=== PATIENT | female | born 1975 | race Caucasian/White ===

== ENCOUNTER → 2019-03-31 10:30 | Oncology outpatient (ONC) | payer OTHER, SELFPAY ==
[2018-12-24 11:38] VITALS: BP 113/75; PULSE 57; RESP 18; TEMP 36.5; O2SAT 97
--- NOTE | 2018-12-24 11:38 | PC.NURSE ---
[facility] info sheet given to pt on Lupron.
[2018-12-31 10:39] VITALS: BP 107/53; PULSE 76; RESP 16; TEMP 36.6; O2SAT 97
[2018-12-31] MEDS: LEUPROLIDE DEPOT 11.25 MG SYR IM (10:52)
--- NOTE | 2019-03-23 10:11 | ONC.SCHED ---
patient arrived 12/24/18 for her first injection however the medication was not available so she came back 12/31/18 for first injection. Scheduled for 2nd injection Mar 31, 2019
[2019-03-31] MEDS: LEUPROLIDE DEPOT 11.25 MG SYR IM (09:59)
[2019-03-31 10:16] VITALS: BP 113/57; PULSE 59; RESP 18; TEMP 36.4; O2SAT 100
== END ==
DX: D25.9 Leiomyoma of uterus, unspecified (principal)
CPT/HCPCS: 96372; J1950

== ENCOUNTER → 2019-04-13 15:58 | Outpatient (CLI) | payer OTHER, SELFPAY ==
--- NOTE | 2019-04-13 16:04 | DI.MRI.S_ITS ---
PROCEDURE: MR LUMBAR SPINE WO CON INDICATIONS: LUMBAGO WITH SCIATICA RIGHT SIDE TECHNIQUE: Noncontrast sagittal T1 spin echo and T2 fast echo, sagittal STIR, axial T1 and T2 fast spin echo through the lumbar spine. In cases with scoliosis, additional coronal T2 fast spin echo may be performed. COMPARISON: None. FINDINGS: Image quality: Excellent. Alignment and Curvature: Straightening of the normal lumbar lordosis. Grade 1 retrolisthesis of L4 on L5 and L5 on S1 Bone Marrow: Marrow is of normal overall signal. No acute vertebral body compression fractures. Spinal Cord: Conus medullaris terminates at the L1 level. Visualized cord demonstrates normal signal and size. Paraspinous Soft Tissues: No paravertebral masses. L1-L2: Normal appearance. L2-L3: Normal appearance. L3-L4: Mild central canal narrowing. Partial effacement of both lateral recesses with minimally asymmetric appearance, right slightly greater than left. Moderate bilateral foraminal stenoses. L4-L5: Dorsal epidural lipomatosis. Mild-moderate central canal narrowing. Partial effacement of both lateral recesses with bilaterally symmetric appearance. Moderate to severe right foraminal stenosis with nerve root compression. Mild left foraminal stenosis with slight nerve root compression L5-S1: No high-grade central canal narrowing. Severe right foraminal stenosis with nerve root compression. No foraminal narrowing IMPRESSION: Lower lumbar spondylosis and facet arthropathy as above Mild-moderate L4-L5 canal narrowing. Moderate to severe right L4-L5 foraminal stenosis Severe right L5-S1 foraminal stenosis Moderate bilateral L4 foraminal stenoses Dictated by: Gee Merida M.D. on 04/13/2019 at 17:39 Approved by: Gee Merida M.D. on 04/13/2019 at 17:43
== END ==
PROVIDERS: Visit Provider Family Medicine Geriatric Medicine
DX: M54.41 Lumbago with sciatica, right side (principal); M47.816 Spondylosis without myelopathy or radiculopathy, lumbar region; M48.061 Spinal stenosis, lumbar region without neurogenic claudication; M48.07 Spinal stenosis, lumbosacral region
CPT/HCPCS: 72148

== ENCOUNTER 2022-09-10 13:18 | Emergency (ER) | payer SELFPAY ==
[2022-09-10] VITALS (11 sets, daily range): BP systolic 114–137; BP diastolic 85–102; PULSE 51–85; RESP 16–18; TEMP 36.9; O2SAT 95–100; BMI 20.9
--- NOTE | 2022-09-10 13:43 | DI.US.S_ITS ---
PROCEDURE: US ABDOMEN LIMITED INDICATIONS: RIGHT UPPER QUADRANT AND EPIGASTRIC TECHNIQUE: Real-time scanning was performed of the abdominal and retroperitoneal organs, with image documentation. COMPARISON: None. FINDINGS: Liver: Liver is normal in size and homogeneous in echotexture. Gallbladder: Contracted. Multiple gallbladder polyps present, largest measuring 4 mm. Biliary ducts: Intrahepatic bile ducts are non-dilated. Extrahepatic bile duct caliber measures 4 mm. Normal is 6-7 mm or less in diameter, or 10 mm or less post-cholecystectomy. Pancreas: Visualized portions of the pancreas are sonographically normal. Right kidney: Normal size and echogenicity. No hydronephrosis. Miscellaneous: No free abdominal fluid. IMPRESSION: The gallbladder is contracted, without evidence of acute pathology. Multiple gallbladder polyps, measuring no greater than 4 mm. These are benign and require no further follow-up, per ACR consensus guidelines. Dictated by: Jesus Tapia M.D. on 09/10/2022 at 14:28 Approved by: Jesus Tapia M.D. on 09/10/2022 at 14:29
--- NOTE | 2022-09-10 13:54 | DI.RAD.S_ITS ---
PROCEDURE: XR CHEST 2V INDICATIONS: chest pain TECHNIQUE: 2 views of the chest were acquired. COMPARISON: None. FINDINGS: Surgical changes and devices: None. Lungs and pleura: Lungs are clear. No pleural effusions or pneumothorax. Mediastinum: Mediastinal contours are normal. Heart size is normal. Bones and chest wall: No suspicious bony abnormalities. Soft tissues appear unremarkable. IMPRESSION: No acute cardiopulmonary process. Dictated by: Jesus Tapia M.D. on 09/10/2022 at 14:35 Approved by: Jesus Tapia M.D. on 09/10/2022 at 14:35
--- NOTE | 2022-09-10 13:54 | PC.NURSE ---
As patient getting ready to go to US she reports intermittent substernal chest pain with latest episode yesterday and describes as a pressure that hurts more with breathing. Provider made aware.
[2022-09-10 14:02] LABS: Add Manual Diff / Slide Review NO; Basophils Absolute Auto 100 /uL (0-100); Basophils Percent Auto 0.9 % (0-2); Eosinophils Absolute Auto 100 /uL (0-450); Eosinophils Percent Auto 1.3 % (2-4); Hematocrit 40.4 % (36-46); Hemoglobin 13.7 g/dL (12.0-16.0); Lymphocytes Absolute Auto 3500 /uL (1100-4500); Lymphocytes Percent Auto 39.5 % (25-40); Mean Corpuscular HGB Conc 33.9 % (30-36); Mean Corpuscular Hemoglobin 30.5 PG (26-34); Mean Corpuscular Volume 89.9 fL (80-100); Monocytes Absolute Auto 500 /uL (0-900); Monocytes Percent Auto 5.3 % (3-14); Neutrophils Absolute Auto 4700 /uL (1500-7000); Platelet Count 279 X10^3/uL (150-400); Red Blood Cell Count 4.49 X10^6/uL (4.0-5.2); Red Cell Distribution Width 13.5 % (11.6-14.8); White Blood Cell Count 8.8 X10^3/uL (4.5-11.0)
[2022-09-10 14:15] LABS: Alanine Aminotransferase 15 IU/L (<35); Albumin 4.6 g/dL (3.5-5.0); Albumin Globulin Ratio 1.4 (1.0-2.8); Alkaline Phosphatase 59 U/L (38-126); Aspartate Aminotransferase 21 IU/L (14-36); BUN Creatinine Ratio 20.6 (6-22); Bilirubin Total 0.4 mg/dL (0.2-1.3); Blood Urea Nitrogen 14 mg/dL (7-17); Calcium 8.9 mg/dL (8.4-10.2); Carbon Dioxide 24 mmol/L (22-32); Chloride 106 mmol/L (98-107); Estimated Glomerular Filt Rate > 60 mL/min (>60); Globulin 3.2 g/dL (1.7-4.1); Glucose 124 mg/dL (70-100); HEMOLYSIS < 15 (0-50); Lipase 94 U/L (23-300); Potassium 3.9 mmol/L (3.4-5.1); Sodium 138 mmol/L (137-145); Total Protein 7.8 g/dL (6.3-8.2)
[2022-09-10 14:19] LABS: Bacteria Urine Few (2-10); Hyaline Casts Urine 0-1/LPF; RBC Urine 1-5/HPF (0-5/HPF); Squamous Epithelial Cell Urine 1-5 /HPF (0-5/HPF); WBC Urine 1-5/HPF (0-5/HPF)
[2022-09-10 14:20] LABS: Culture Indicated Urine Cult Not Indicated
[2022-09-10] MEDS: ONDANSETRON 4 MG/2 ML INJ IV (14:22)
[2022-09-10] MEDS: KETOROLAC 30 MG/ML VIAL 15 MG IV (14:22)
[2022-09-10 14:26] LABS: Troponin I < 0.012 ng/mL (0.01-0.034)
--- NOTE | 2022-09-10 14:34 | DI.CT.S_ITS ---
PROCEDURE: CT ABDOMEN PELVIS W CON INDICATIONS: RUQ, epigastric pain TECHNIQUE: After the administration of intravenous contrast, axial sections acquired from the lung bases to the pubic symphysis. Coronal and sagittal reformats were performed. For radiation dose reduction, the following was used: automated exposure control, adjustment of mA and/or kV according to patient size. COMPARISON: None. FINDINGS: Image quality: Excellent. Lung bases: Unremarkable. Heart: No significant findings. ABDOMEN: Liver: Unremarkable. Gallbladder: Cristel Unremarkable. Biliary ducts: Unremarkable. Pancreas: Unremarkable. Spleen: Unremarkable. Adrenal Glands: Unremarkable. Kidneys and Ureters: Unremarkable. Stomach and Bowel: Stomach, small bowel loops, and colon are unremarkable. Peritoneum: No abnormal intraperitoneal fluid. No free air. Ventral Wall: No hernias. Abdominal Nodes: No retroperitoneal or mesenteric adenopathy by size criteria. Vessels: Aorta and inferior vena cava are normal in size. PELVIS: Pelvic Organs: There is what is most likely a large exophytic subserosal fibroid off the posterior wall of the uterus which measures approximately 5.5 x 6.9 x 7.6 cm. It may result in bulk related symptomatology. Bladder: Unremarkable. Pelvic Nodes: No enlarged lymph nodes. Miscellaneous: No hernias are seen. Bones: Lumbar degenerative change. No lytic or blastic bony lesions. No compression fractures. IMPRESSION: 1. No findings which explain the patient's right upper quadrant pain. 2. Probable large exophytic subserosal fibroid. Comment: Recommend further evaluation of the probable fibroid with nonemergent pelvic ultrasound. Dictated by: Joe Jorge M.D. on 09/10/2022 at 15:01 Approved by: Joe Jorge M.D. on 09/10/2022 at 15:11
--- NOTE | 2022-09-10 14:50 | ED_ITS ---
HPI - Abdominal Pain <Kaden De Jesus PA-C - Last Filed: 09/10/22 17:14> General Chief Complaint: Abdominal Pain Stated Complaint: abd pain/pressure/sharp pain T-21/swelling Time Seen by Provider: 09/10/22 13:37 Source: patient Mode of arrival: Ambulatory History of Present Illness HPI narrative: 47-year-old female with past medical history uterine fibroid presents to the ED with 1 month of intermittent right upper quadrant and epigastric pain. Patient endorses nausea but no vomiting. Patient endorses 6 episodes of diarrhea this morning. Denies hematochezia, melena. Patient states that she had 2-3 episodes of chest pain yesterday that felt like substernal chest tightness. Patient d enies shortness of breath, fever, chills, dysuria, urinary urgency, urinary frequency, lightheadedness, dizziness, syncope. Patient states that she is had a poor appetite for the last month, that eating aggravates her abdominal pain. Patient endorses occasional alcohol use. Related Data Home Medications Medication Instructions Recorded Confirmed No Known Home Medications 12/18/18 12/18/18 Allergies Allergy/AdvReac Type Severity Reaction Status Date / Time No Known Drug Allergies Allergy Verified 09/10/22 13:24 Review of Systems <Kaden De Jesus PA-C - Last Filed: 09/10/22 17:14> Review of Systems ROS Unobtainable: All systems reviewed & are unremarkable except as noted in HPI and below Constitutional Constitutional: Denies chills, Denies fatigue, Denies fever(s), Denies frequent falls, Denies lethargy, Reports poor appetite and Denies weakness Eyes Eyes: Denies change in vision, Denies eye discharge, Denies irritation and Denies loss of vision ENT Ears, Nose, Mouth, and Throat: Denies change in voice, Denies dizziness, Denies neck pain, Denies sore throat and Denies throat swelling Cardiovascular Cardiovascular: Denies chest pain, Denies irregular heart rhythm, Denies light headedness, Denies palpitations, Denies dyspnea, Denies dyspnea on exertion and Denies orthopnea Respiratory Respiratory: Denies cough, Denies dyspnea, Denies dyspnea on exertion and Denies wheezing Gastrointestinal Gastrointestinal: Reports abdominal pain, Denies change in bowel habits, Reports diarrhea, Reports nausea and Denies vomiting Genitourinary Genitourinary: Denies hematuria, Denies flank pain, Denies urinary incontinence and Denies urinary urgency Musculoskeletal Musculoskeletal: Denies back pain, Denies muscle weakness, Denies neck pain, Denies numbness and Denies tingling Integumentary/Breasts Skin/Breast: Denies pruritus, Denies erythema, Denies rash and Denies wounds Neurologic Neurologic: Denies behavioral changes, Denies confusion, Denies dizziness, Denies frequent falls, Denies loss of vision, Denies numbness, Denies tingling and Denies weakness Psychiatric Psychiatric: Denies anxiety, Denies behavioral changes, Denies confusion, Denies depression, Denies homicidal ideation and Denies suicidal ideation Endocrine Endocrine: Denies fatigue, Denies flushing and Denies palpitations Hematologic/Lymphatic Hematologic/Lymphatic: Denies easy bruising Allergic/Immunologic Allergic/Immunologic: Denies urticaria, Denies throat swelling and Denies wheezing Patient History <Kaden De Jesus PA-C - Last Filed: 09/10/22 17:14> Medical History Pelvic pain Uterine fibroid Social History marital status: unmarried,single pets and animals: Yes (Turtles) occupational status: employed 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) seatbelt use: always water heater temp set < 120 deg: Yes working smoke detector in home: Yes fire extinguisher in home: Yes carbon monox detector in home: Yes do you feel safe at home: Yes Smoking Status: Current some day smoker alcohol intake: current substance use type: marijuana during the past year weight has: increased > 10 lbs well-balanced diet: daily or most days daily servings fruits/ve-4 caffeine: Yes (1-3 drinks per week) eating out: 4 or more times/week Smoking Status: Current some day smoker tobacco type: cigarettes and vaping Substance Use Type: does not use Exam <Kaden De Jesus PA-C - Last Filed: 09/10/22 17:14> Narrative Exam Narrative: Const General:?cooperative, healthy appearing and comfortable HENNY Head:?normal to inspection Ears:?hearing grossly normal bilaterally Nose:?external nose normal Face and sinus:?normal facial exam and sinuses nontender Mouth:?oral mucosae normal Throat:?posterior oropharynx normal Eyes General:?appearance normal, both eyes and all related structures Neck Neck:?normal visual inspection and no lymphadenopathy noted Resp Effort & Inspection:?normal respiratory effort Auscultation:?clear to auscultation bilaterally Cardio Rate:?regular rate Rhythm:?regular rhythm GI Abdomen is soft, nondistended. Abdomen is tender to palpation in the right upper quadrant and epigastric regions. There is no CVA tenderness. Neuro General:?patient alert, patient awake and patient oriented x3 Initial Vital Signs Initial Vital Signs: Vital Signs Temperature 98.5 F 09/10/22 13:24 Pulse Rate 85 09/10/22 13:24 Respiratory Rate 16 09/10/22 13:24 Blood Pressure 137/102 H 09/10/22 13:24 Pulse Oximetry 98 09/10/22 13:24 Oxygen Delivery Method Room Air 09/10/22 13:24 <Uriel Mcghee DO - Last Filed: 09/10/22 17:42> Initial Vital Signs Initial Vital Signs: Vital Signs Temperature 98.5 F 09/10/22 13:24 Pulse Rate 85 09/10/22 13:24 Respiratory Rate 16 09/10/22 13:24 Blood Pressure 137/102 H 09/10/22 13:24 Pulse Oximetry 98 09/10/22 13:24 Oxygen Delivery Method Room Air 09/10/22 13:24 Course <Kaden De Jesus PA-C - Last Filed: 09/10/22 17:14> Orders Ordered: ED Orders 09/10/22 13:33 Urine Microscopic Stat 09/10/22 13:35 EKG-12 Lead Stat 09/10/22 13:43 US abdomen limited Stat 09/10/22 13:51 Complete Blood Count AUTO DIFF Stat Comprehensive Metabolic Panel Stat Lipase Stat Troponin I Stat 09/10/22 13:54 CXR [XR chest 2V] Stat 09/10/22 14:34 CT abdomen pelvis w con Stat 09/10/22 16:00 Trop I [Troponin I] Stat Discontinued Medications Ketorolac Tromethamine (Ketorolac 30 Mg/Ml Vial) 15 mg IV NOW ONE Stop: 09/10/22 13:44 Last Admin: 09/10/22 14:22 Dose: 15 mg Documented By: AT Ondansetron HCl (Ondansetron 4 Mg Odt) 4 mg PO NOW PRN PRN Reason: Nausea And Vomiting Ondansetron HCl (Ondansetron 4 Mg/2 Ml Inj) 4 mg IV NOW PRN PRN Reason: Nausea And Vomiting Ondansetron HCl (Ondansetron 4 Mg/2 Ml Inj) 4 mg IV NOW ONE Stop: 09/10/22 13:44 Last Admin: 09/10/22 14:22 Dose: 4 mg Documented By: AT Vital Signs Vital signs: Vital Signs - 8 hr 09/10/22 13:24 09/10/22 14:25 09/10/22 14:26 Temperature 98.5 F Pulse Rate 85 56 L Respiratory Rate 16 Blood Pressure 137/102 H Pulse Oximetry 98 100 95 Oxygen Delivery Method Room Air Room Air 09/10/22 14:26 09/10/22 14:30 09/10/22 14:31 Temperature Pulse Rate 65 Respiratory Rate Blood Pressure 135/85 127/87 Pulse Oximetry 98 Oxygen Delivery Method Room Air 09/10/22 14:31 09/10/22 15:00 09/10/22 15:30 Temperature Pulse Rate 66 60 67 Respiratory Rate 18 Blood Pressure Pulse Oximetry 98 99 99 Oxygen Delivery Method Room Air 09/10/22 16:00 09/10/22 16:30 09/10/22 16:45 Temperature Pulse Rate 66 51 L 57 L Respiratory Rate 18 Blood Pressure Pulse Oximetry 99 99 99 Oxygen Delivery Method Room Air 09/10/22 16:46 Temperature Pulse Rate Respiratory Rate Blood Pressure 114/85 Pulse Oximetry Oxygen Delivery Method <Uriel Mcghee DO - Last Filed: 09/10/22 17:42> Orders Ordered: ED Orders 09/10/22 13:33 Urine Microscopic Stat 09/10/22 13:35 EKG-12 Lead Stat 09/10/22 13:43 US abdomen limited Stat 09/10/22 13:51 Complete Blood Count AUTO DIFF Stat Comprehensive Metabolic Panel Stat Lipase Stat Troponin I Stat 09/10/22 13:54 CXR [XR chest 2V] Stat 09/10/22 14:34 CT abdomen pelvis w con Stat 09/10/22 16:00 Trop I [Troponin I] Stat Discontinued Medications Ketorolac Tromethamine (Ketorolac 30 Mg/Ml Vial) 15 mg IV NOW ONE Stop: 09/10/22 13:44 Last Admin: 09/10/22 14:22 Dose: 15 mg Documented By: AT Ondansetron HCl (Ondansetron 4 Mg Odt) 4 mg PO NOW PRN PRN Reason: Nausea And Vomiting Ondansetron HCl (Ondansetron 4 Mg/2 Ml Inj) 4 mg IV NOW PRN PRN Reason: Nausea And Vomiting Ondansetron HCl (Ondansetron 4 Mg/2 Ml Inj) 4 mg IV NOW ONE Stop: 09/10/22 13:44 Last Admin: 09/10/22 14:22 Dose: 4 mg Documented By: AT Vital Signs Vital signs: Vital Signs - 8 hr 09/10/22 13:24 09/10/22 14:25 09/10/22 14:26 Temperature 98.5 F Pulse Rate 85 56 L Respiratory Rate 16 Blood Pressure 137/102 H Pulse Oximetry 98 100 95 Oxygen Delivery Method Room Air Room Air 09/10/22 14:26 09/10/22 14:30 09/10/22 14:31 Temperature Pulse Rate 65 Respiratory Rate Blood Pressure 135/85 127/87 Pulse Oximetry 98 Oxygen Delivery Method Room Air 09/10/22 14:31 09/10/22 15:00 09/10/22 15:30 Temperature Pulse Rate 66 60 67 Respiratory Rate 18 Blood Pressure Pulse Oximetry 98 99 99 Oxygen Delivery Method Room Air 09/10/22 16:00 09/10/22 16:30 09/10/22 16:45 Temperature Pulse Rate 66 51 L 57 L Respiratory Rate 18 Blood Pressure Pulse Oximetry 99 99 99 Oxygen Delivery Method Room Air 09/10/22 16:46 Temperature Pulse Rate Respiratory Rate Blood Pressure 114/85 Pulse Oximetry Oxygen Delivery Method MDM - Abdominal Pain <Kaden De Jesus PA-C - Last Filed: 09/10/22 17:14> Lab Data 09/10/22 13:51 09/10/22 13:51 Labs: Lab Results 09/10/22 09/10/22 09/10/22 Range/Units 13:33 13:51 13:51 WBC 8.8 (4.5-11.0) X10^3/uL RBC 4.49 (4.0-5.2) X10^6/uL Hgb 13.7 (12.0-16.0) g/dL Hct 40.4 (36-46) % MCV 89.9 (80-100) fL MCH 30.5 (26-34) PG MCHC 33.9 (30-36) % RDW 13.5 (11.6-14.8) % Plt Count 279 (150-400) X10^3/uL Neut % (Auto) 53.0 (50-75) % Lymph % (Auto) 39.5 (25-40) % [place] % (Auto) 5.3 (3-14) % Eos % (Auto) 1.3 L (2-4) % Baso % (Auto) 0.9 (0-2) % Neut # (Auto) 4700 (0637-9913) /uL Lymph # (Auto) 3500 (6754-9940) /uL [place] # (Auto) 500 (0-900) /uL Eos # (Auto) 100 (0-450) /uL Baso # (Auto) 100 (0-100) /uL Sodium 138 (137-145) mmol/L Potassium 3.9 (3.4-5.1) mmol/L Chloride 106 (98-107) mmol/L Carbon Dioxide 24 (22-32) mmol/L BUN 14 (7-17) mg/dL Creatinine 0.68 (0.52-1.04) mg/dL Estimated GFR > 60 (>60) mL/min BUN/Creatinine Ratio 20.6 (6-22) Glucose 124 H (70-100) mg/dL Calcium 8.9 (8.4-10.2) mg/dL Total Bilirubin 0.4 (0.2-1.3) mg/dL AST 21 (14-36) IU/L ALT 15 (<35) IU/L Alkaline Phosphatase 59 (38-126) U/L Troponin I (0.01-0.034) ng/mL Total Protein 7.8 (6.3-8.2) g/dL Albumin 4.6 (3.5-5.0) g/dL Globulin 3.2 (1.7-4.1) g/dL Albumin/Globulin Ratio 1.4 (1.0-2.8) Lipase 94 (23-300) U/L Urine RBC 1-5/hpf (0-5/HPF) Urine WBC 1-5/hpf (0-5/HPF) Ur Squamous Epith Cells 1-5 /hpf (0-5/HPF) Urine Bacteria Few (2-10) H (None) Hyaline Casts 0-1/lpf (None) Ur Culture Indicated? Cult not indicated 09/10/22 09/10/22 Range/Units 13:51 16:00 WBC (4.5-11.0) X10^3/uL RBC (4.0-5.2) X10^6/uL Hgb (12.0-16.0) g/dL Hct (36-46) % MCV (80-100) fL MCH (26-34) PG MCHC (30-36) % RDW (11.6-14.8) % Plt Count (150-400) X10^3/uL Neut % (Auto) (50-75) % Lymph % (Auto) (25-40) % [place] % (Auto) (3-14) % Eos % (Auto) (2-4) % Baso % (Auto) (0-2) % Neut # (Auto) (0331-5173) /uL Lymph # (Auto) (8616-6431) /uL [place] # (Auto) (0-900) /uL Eos # (Auto) (0-450) /uL Baso # (Auto) (0-100) /uL Sodium (137-145) mmol/L Potassium (3.4-5.1) mmol/L Chloride (98-107) mmol/L Carbon Dioxide (22-32) mmol/L BUN (7-17) mg/dL Creatinine (0.52-1.04) mg/dL Estimated GFR (>60) mL/min BUN/Creatinine Ratio (6-22) Glucose (70-100) mg/dL Calcium (8.4-10.2) mg/dL Total Bilirubin (0.2-1.3) mg/dL AST (14-36) IU/L ALT (<35) IU/L Alkaline Phosphatase (38-126) U/L Troponin I < 0.012 < 0.012 (0.01-0.034) ng/mL Total Protein (6.3-8.2) g/dL Albumin (3.5-5.0) g/dL Globulin (1.7-4.1) g/dL Albumin/Globulin Ratio (1.0-2.8) Lipase (23-300) U/L Urine RBC (0-5/HPF) Urine WBC (0-5/HPF) Ur Squamous Epith Cells (0-5/HPF) Urine Bacteria (None) Hyaline Casts (None) Ur Culture Indicated? Point of care testing: Point of Care Testing Test Results Negative Urine Dip Bedside Urine Glucose Negative Bedside Urine Bilirubin - Negative Bedside Urine Ketone - Negative Urine Specific Donalds 1.030 Bedside Urine Occult Blood + Bedside Urine pH 5.5 Bedside Urine Protein - Negative Bedside Urine Urobilinogen - Negative Bedside Urine Nitrite - Negative Bedside Urine Leukocytes - Negative Esterase MDM Narrative Medical decision making narrative: 47-year-old female with past medical history uterine fibroid presents to the ED with 1 month of intermittent right upper quadrant and epigastric pain. Concern for ACS versus gallbladder etiology versus pancreatitis versus gastritis versus GERD versus PUD versus other intra-abdominal pathology versus other. Will obtain labs, troponin, chest x-ray, EKG, UA, abdominal ultrasound. Will c onsider CT abdomen pelvis if negative ultrasound. Will give Zofran and ketorolac for symptoms. Will reassess. No acute findings other than multiple polyps in the gallbladder. CT abdomen pelvis obtained that shows a probable large exophytic subserosal fibroid but no other findings to explain patient's current symptoms. EKG with bradycardia of 58, no acute ST-T changes, no axis deviation. Chest x-ray without acute findings. Troponin x2 within normal limits. Discussed findings with patient. Symptoms could likely be due to gastritis versus GERD versus PUD. Recommend GI consult as soon as possible for further evaluation. Also recommend gynecological consult for further evaluation of the fibroid. Recommend trialing Pepcid AC twice daily for the next 2-4 weeks. ED return precautions discussed with patient. Patient verbalized understanding. Medical records reviewed: Yes <Uriel Mcghee DO - Last Filed: 09/10/22 17:42> Lab Data Labs: Lab Results 09/10/22 09/10/22 09/10/22 Range/Units 13:33 13:51 13:51 WBC 8.8 (4.5-11.0) X10^3/uL RBC 4.49 (4.0-5.2) X10^6/uL Hgb 13.7 (12.0-16.0) g/dL Hct 40.4 (36-46) % MCV 89.9 (80-100) fL MCH 30.5 (26-34) PG MCHC 33.9 (30-36) % RDW 13.5 (11.6-14.8) % Plt Count 279 (150-400) X10^3/uL Neut % (Auto) 53.0 (50-75) % Lymph % (Auto) 39.5 (25-40) % [place] % (Auto) 5.3 (3-14) % Eos % (Auto) 1.3 L (2-4) % Baso % (Auto) 0.9 (0-2) % Neut # (Auto) 4700 (8346-5931) /uL Lymph # (Auto) 3500 (4640-3785) /uL [place] # (Auto) 500 (0-900) /uL Eos # (Auto) 100 (0-450) /uL Baso # (Auto) 100 (0-100) /uL Sodium 138 (137-145) mmol/L Potassium 3.9 (3.4-5.1) mmol/L Chloride 106 (98-107) mmol/L Carbon Dioxide 24 (22-32) mmol/L BUN 14 (7-17) mg/dL Creatinine 0.68 (0.52-1.04) mg/dL Estimated GFR > 60 (>60) mL/min BUN/Creatinine Ratio 20.6 (6-22) Glucose 124 H (70-100) mg/dL Calcium 8.9 (8.4-10.2) mg/dL Total Bilirubin 0.4 (0.2-1.3) mg/dL AST 21 (14-36) IU/L ALT 15 (<35) IU/L Alkaline Phosphatase 59 (38-126) U/L Troponin I (0.01-0.034) ng/mL Total Protein 7.8 (6.3-8.2) g/dL Albumin 4.6 (3.5-5.0) g/dL Globulin 3.2 (1.7-4.1) g/dL Albumin/Globulin Ratio 1.4 (1.0-2.8) Lipase 94 (23-300) U/L Urine RBC 1-5/hpf (0-5/HPF) Urine WBC 1-5/hpf (0-5/HPF) Ur Squamous Epith Cells 1-5 /hpf (0-5/HPF) Urine Bacteria Few (2-10) H (None) Hyaline Casts 0-1/lpf (None) Ur Culture Indicated? Cult not indicated 09/10/22 09/10/22 Range/Units 13:51 16:00 WBC (4.5-11.0) X10^3/uL RBC (4.0-5.2) X10^6/uL Hgb (12.0-16.0) g/dL Hct (36-46) % MCV (80-100) fL MCH (26-34) PG MCHC (30-36) % RDW (11.6-14.8) % Plt Count (150-400) X10^3/uL Neut % (Auto) (50-75) % Lymph % (Auto) (25-40) % [place] % (Auto) (3-14) % Eos % (Auto) (2-4) % Baso % (Auto) (0-2) % Neut # (Auto) (3242-4533) /uL Lymph # (Auto) (9054-3362) /uL [place] # (Auto) (0-900) /uL Eos # (Auto) (0-450) /uL Baso # (Auto) (0-100) /uL Sodium (137-145) mmol/L Potassium (3.4-5.1) mmol/L Chloride (98-107) mmol/L Carbon Dioxide (22-32) mmol/L BUN (7-17) mg/dL Creatinine (0.52-1.04) mg/dL Estimated GFR (>60) mL/min BUN/Creatinine Ratio (6-22) Glucose (70-100) mg/dL Calcium (8.4-10.2) mg/dL Total Bilirubin (0.2-1.3) mg/dL AST (14-36) IU/L ALT (<35) IU/L Alkaline Phosphatase (38-126) U/L Troponin I < 0.012 < 0.012 (0.01-0.034) ng/mL Total Protein (6.3-8.2) g/dL Albumin (3.5-5.0) g/dL Globulin (1.7-4.1) g/dL Albumin/Globulin Ratio (1.0-2.8) Lipase (23-300) U/L Urine RBC (0-5/HPF) Urine WBC (0-5/HPF) Ur Squamous Epith Cells (0-5/HPF) Urine Bacteria (None) Hyaline Casts (None) Ur Culture Indicated? Point of care testing: Point of Care Testing Test Results Negative Urine Dip Bedside Urine Glucose Negative Bedside Urine Bilirubin - Negative Bedside Urine Ketone - Negative Urine Specific [place] 1.030 Bedside Urine Occult Blood + Bedside Urine pH 5.5 Bedside Urine Protein - Negative Bedside Urine Urobilinogen - Negative Bedside Urine Nitrite - Negative Bedside Urine Leukocytes - Negative Esterase Discharge Plan Departure Patient Disposition: Home Clinical Impression: Abdominal pain Instructions: DI for Abdominal Pain-Adult Activity Restrictions/Additional Instructions: You were evaluated in the ED today for abdominal pain. Your labs, urine, EKG, chest x-ray were normal. The ultrasound of the abdomen shows some polyps of the gallbladder which should not be contributing to your symptoms. There were no other acute findings on the ultrasound. The CT abdomen pelvis shows a fibroid and no other acute findings. We recommend that you follow-up with GI for further evaluation of the abdominal pain that could be caused by acid reflux, gastritis or a ulcer. You may trial Pepcid AC which is an antacid twice a day for 2-4 weeks. We also recommend that you follow-up with a eating disorder psychologist for further evaluation of the fibroid. Return to the ED if you have worsening symptoms, chest pain, shortness of breath. Prescriptions: No Action No Known Home Medications Referrals: Miscellaneous,Doctor, MD [Primary Care Provider] - Stand Alone Forms: Patient Portal/API, Against Medical Advice <Uriel Mcghee, DO - Last Filed: 09/10/22 17:42> Cosign ED Attending Cosignature Attestation: Dr Mcghee Co-Sign Statement: I was available for consultation during this patient's emergency department visit. This chart is signed by myself for adm inistrative purposes only. I did not have direct contact with this patient during this visit. They were seen independently by the APC.
[2022-09-10 16:30] LABS: Troponin I < 0.012 ng/mL (0.01-0.034)
== END 2022-09-10 16:49 | disposition home or self-care (01) ==
PROVIDERS: Emergency Medicine; Emergency Provider Student in an Organized Health Care Education/Training Program
DX: R10.13 Epigastric pain (principal); R07.9 Chest pain, unspecified
CPT/HCPCS: 36415; 71046; 74177; 76705; 80053; 81003; 81015; 81025; 83690; 84484; 85025; 93005; 93010; 96374; 96375; 99284; 99285; J1885; J2405; Q9967